=== PATIENT | female | born 1960 | race Caucasian/White ===

== ENCOUNTER → 2024-01-09 06:25 | Day surgery (SDC) | payer OTHER, SELFPAY | LOC: GI 06:25 | PROVIDERS: ATTENDING PHYSICIAN Internal Medicine Gastroenterology; FAMILY PHYSICIAN Family Medicine | DX: Z12.11 Encounter for screening for malignant neoplasm of colon (principal); K57.30 Diverticulosis of large intestine without perforation or abscess without bleeding; D12.2 Benign neoplasm of ascending colon; D12.4 Benign neoplasm of descending colon | CPT/HCPCS: 45385; 88305 ==

== ENCOUNTER → 2024-04-08 11:28 | Outpatient (REF) | payer OTHER, SELFPAY | LOC: HWWDC 11:28 | PROVIDERS: ATTENDING PHYSICIAN Obstetrics & Gynecology Gynecology; FAMILY PHYSICIAN Family Medicine | DX: Z12.31 Encounter for screening mammogram for malignant neoplasm of breast (principal) | CPT/HCPCS: 77063; 77067 ==